=== PATIENT | female | born 1955 | race Caucasian/White ===

== ENCOUNTER → 2020-09-12 10:12 | Outpatient (BNVA) | payer MEDICARE, SELFPAY | PROVIDERS: PCP Physician Assistant; Visit Provider Family Medicine Adult Medicine | DX: M54.16 Radiculopathy, lumbar region (principal); Z98.1 Arthrodesis status | CPT/HCPCS: 99212 ==

== ENCOUNTER 2020-10-17 08:55 | Outpatient (REF) | payer MEDICARE, SELFPAY ==
[2020-10-17 10:17] LABS: MANUAL DIFF FLAG NO
[2020-10-17 10:22] LABS: Basophils Absolute Auto 0.1 X10*3/uL (0.0-0.2); Basophils Percent Auto 0.9 % (0-2); Eosinophils Absolute Auto 0.3 X10*3/uL (0.0-0.4); Eosinophils Percent Auto 3.5 % (0-4); Hematocrit 41.6 % (37-47); Hemoglobin 12.6 g/dl (12.0-16.0); Imm Gran Abs Auto 0.02 X10*3/uL (0.00-0.03); Imm Gran Pct Auto 0.2 % (0.0-0.4); Lymphocytes Absolute Auto 3.6 X10*3/uL (1.2-4.9); Lymphocytes Percent Auto 36.6 % (20-40); Mean Corpuscular HGB Conc 30.3 g/dl (31.0-35.0); Mean Corpuscular Volume 95.6 fL (80-98); Mean Platelet Volume 9.6 fL (9.4-12.3); Monocytes Absolute Auto 0.8 X10*3/uL (0.1-1.2); Monocytes Percent Auto 7.7 % (2-11); Neutrophils Percent Auto 51.1 % (45-73); Platelet Count 362 X10*3/uL (160-400); Red Blood Count 4.35 X10*6/uL (4.20-5.50); Red Cell Distribution Width 13.3 % (11.0-16.0); White Blood Count 9.8 X10*3/uL (4.8-10.8)
[2020-10-17 11:04] LABS: Alanine Aminotransferase 11 U/L (0-31); Albumin Level 4.2 g/dL (3.5-5.0); Alkaline Phosphatase 90 U/L (39-117); Anion Gap 12 (12-20); Aspartate Amino Transferase 11 U/L (5-31); Bilirubin Total 0.4 mg/dL (0.0-1.0); Blood Urea Nitrogen 16 mg/dL (9-16); Calcium 8.6 mg/dL (8.4-10.2); Carbon Dioxide 24 mmol/L (22-29); Chloride 109 mmol/L (96-108); Estimated Glomerular Filt Rate 57; Glucose Fasting 87 mg/dL (60-99); Sodium 141 mmol/L (135-145); Total Protein 6.4 g/dL (6.5-8.0)
== END 2020-10-17 08:56 | disposition home or self-care (01) ==
LOC: HO.10HDL 08:55
PROVIDERS: PCP Physician Assistant; Visit Provider Internal Medicine Medical Oncology
DX: M54.16 Radiculopathy, lumbar region (principal); F41.9 Anxiety disorder, unspecified; D50.9 Iron deficiency anemia, unspecified; Z98.1 Arthrodesis status
CPT/HCPCS: 36415; 80053; 85025; 99212

== ENCOUNTER 2020-11-28 08:32 | Outpatient (REF) | payer MEDICARE, SELFPAY ==
[2020-11-28 13:39] LABS: MANUAL DIFF FLAG NO
[2020-11-28 13:50] LABS: Basophils Absolute Auto 0.1 X10*3/uL (0.0-0.2); Basophils Percent Auto 1.1 % (0-2); Eosinophils Absolute Auto 0.5 X10*3/uL (0.0-0.4); Eosinophils Percent Auto 4.1 % (0-4); Hematocrit 45.5 % (37-47); Hemoglobin 13.7 g/dl (12.0-16.0); Imm Gran Abs Auto 0.03 X10*3/uL (0.00-0.03); Imm Gran Pct Auto 0.3 % (0.0-0.4); Lymphocytes Absolute Auto 3.6 X10*3/uL (1.2-4.9); Lymphocytes Percent Auto 32.3 % (20-40); Mean Corpuscular HGB Conc 30.1 g/dl (31.0-35.0); Mean Corpuscular Hemoglobin 27.6 pg (27.0-33.0); Mean Corpuscular Volume 91.7 fL (80-98); Mean Platelet Volume 9.8 fL (9.4-12.3); Monocytes Absolute Auto 0.8 X10*3/uL (0.1-1.2); Monocytes Percent Auto 7.2 % (2-11); Neutrophils Absolute Auto 6.1 X10*3/uL (2.0-8.3); Platelet Count 432 X10*3/uL (160-400); Red Blood Count 4.96 X10*6/uL (4.20-5.50); Red Cell Distribution Width 13.1 % (11.0-16.0); White Blood Count 11.1 X10*3/uL (4.8-10.8)
[2020-11-28 14:42] LABS: Alanine Aminotransferase 11 U/L (0-31); Albumin Level 4.3 g/dL (3.5-5.0); Alkaline Phosphatase 92 U/L (39-117); Anion Gap 14 (12-20); Aspartate Amino Transferase 11 U/L (5-31); Bilirubin Total 0.3 mg/dL (0.0-1.0); Blood Urea Nitrogen 13 mg/dL (9-16); Calcium 9.2 mg/dL (8.4-10.2); Carbon Dioxide 24 mmol/L (22-29); Chloride 109 mmol/L (96-108); Cholesterol 209 mg/dL; Estimated Glomerular Filt Rate 53; Glucose Fasting 85 mg/dL (60-99); HDL Cholesterol 46 mg/dL; LDL Cholesterol Calculated 128 mg/dl; Potassium 4.1 mmol/l (3.3-5.1); Sodium 143 mmol/L (135-145); Total Protein 6.6 g/dL (6.5-8.0); Triglycerides 175 mg/dL
[2020-11-28 14:49] LABS: TSH reflex Free T4 0.86 mIU/mL (0.32-4.0)
== END 2020-11-28 08:33 | disposition home or self-care (01) ==
LOC: HO.10HDL 08:32
PROVIDERS: Visit Provider Physician Assistant
DX: E78.2 Mixed hyperlipidemia (principal); I10 Essential (primary) hypertension
CPT/HCPCS: 36415; 80053; 80061; 84443; 85025

== ENCOUNTER → 2020-11-29 08:47 | Outpatient (BNVA) | payer MEDICARE, SELFPAY | PROVIDERS: PCP Physician Assistant; Visit Provider Anesthesiology | DX: M41.9 Scoliosis, unspecified (principal); M47.816 Spondylosis without myelopathy or radiculopathy, lumbar region; G89.4 Chronic pain syndrome; Z79.891 Long term (current) use of opiate analgesic | CPT/HCPCS: 99212 ==

== ENCOUNTER → 2020-12-08 08:52 | Outpatient (BNVA) | payer MEDICARE, SELFPAY | PROVIDERS: PCP Physician Assistant; Visit Provider Family Medicine Adult Medicine | DX: Z98.1 Arthrodesis status (principal); M54.16 Radiculopathy, lumbar region ==

== ENCOUNTER 2020-12-12 09:20 | Outpatient (REF) | payer MEDICARE, SELFPAY ==
--- NOTE | 2020-12-12 09:23 | MR_ITS ---
EXAMINATION: MR LUMBAR SPINE WITHOUT CONTRAST CLINICAL INFORMATION: Chronic pain syndrome. COMPARISON: Plain films of the lumbar spine 01/21/2019. TECHNIQUE: MRI of the lumbar spine was obtained using routine sequences without contrast. FINDINGS: VERTEBRAL BODIES AND PARASPINAL STRUCTURES: The study redemonstrates a severe rotatory levoscoliosis. There is a mild retrolisthesis of L3 on L4. There is multilevel narrowing of intervertebral disc height, and there are degenerative endplate contour changes at multiple levels. Mild edematous endplate signal changes are seen at L2-L3 and L3-L4. There are no acute compression fractures. There are areas of increased T1 and T2 signal in multiple vertebrae, consistent with hemangiomata. Overall, marrow signal is homogenous. The visualized retroperitoneal and pelvic structures are unremarkable. CONUS MEDULLARIS AND CAUDA EQUINA: Normal, terminating at the level of T12. There is straightening of the cauda equina nerve roots along the concavity of the scoliosis. The filum terminale appears normal. 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 SPINAL LEVELS: L1-L2: There is mild to moderate bilateral facet arthropathy. There is a posterior disc osteophyte complex extending into the neural foramina bilaterally, more prominently on the right. There is narrowing of the right subarticular recess. There is no central stenosis. L2-L3: There is moderate bilateral facet arthropathy with ligamenta flava hypertrophy. There is a posterior disc protrusion extending into the inferior right neural foramen without definite exiting nerve root impingement. There is narrowing of the right subarticular recess. There is no significant central stenosis. L3-L4: There is moderate to severe bilateral facet arthropathy with ligamenta flava hypertrophy and joint effusions. There is a broad-based posterior disc protrusion, with an extruded component extending into the left subarticular recess with mass effect on the traversing left L4 nerve root and with distortion of the thecal sac on the left. There is mild narrowing of the right subarticular recess. There are inferior foraminal disc protrusions without definite exiting nerve root impingement. There is mild to moderate central stenosis. L4-L5: There is moderate bilateral facet arthropathy. There is a posterior disc protrusion extending into the left neural foramen with impingement on the exiting left L4 nerve root. There is narrowing of the left subarticular recess, and there is likely impingement on the traversing left L5 nerve root. There is no central stenosis. L5-S1: There is moderate to severe bilateral facet arthropathy. There is a posterior disc protrusion extending into the left neural foramen with impingement on the exiting left L5 nerve root. There is no central stenosis. MR/MR lumbar spine wo con IMPRESSION: 1. There is a severe rotatory levoscoliosis. 2. At L3-L4 there is facet arthropathy and there is a posterior disc protrusion with an extruded component extending into the left subarticular recess. There is mass effect on the traversing left L4 nerve root and distortion of the thecal sac. There is mild to moderate central stenosis. 3. At L5-S1 there is facet arthropathy and there is a posterior disc protrusion extending into the left neural foramen with impingement on the exiting left L5 nerve root. 4. At L4-L5 there is facet arthropathy and there is a posterior disc protrusion extending into the left neural foramen with impingement on the exiting left L4 nerve root. There is also narrowing of the left subarticular recess with likely impingement on the traversing left L5 nerve root. There is no central stenosis.
== END 2020-12-12 09:21 | disposition home or self-care (01) ==
LOC: HO.MRI 09:20
PROVIDERS: Visit Provider Anesthesiology
DX: G89.4 Chronic pain syndrome (principal); M41.9 Scoliosis, unspecified; M47.816 Spondylosis without myelopathy or radiculopathy, lumbar region
CPT/HCPCS: 72148

== ENCOUNTER → 2021-01-10 08:24 | Outpatient (BNVA) | payer MEDICARE, SELFPAY | PROVIDERS: PCP Physician Assistant; Visit Provider Anesthesiology | DX: M41.9 Scoliosis, unspecified (principal); M47.816 Spondylosis without myelopathy or radiculopathy, lumbar region; G89.4 Chronic pain syndrome; Z79.891 Long term (current) use of opiate analgesic | CPT/HCPCS: 99212 ==

== ENCOUNTER → 2021-02-01 09:29 | Outpatient (BNVA) | payer MEDICARE, SELFPAY | PROVIDERS: PCP Physician Assistant; Visit Provider Family Medicine Adult Medicine | DX: M54.16 Radiculopathy, lumbar region (principal); F41.9 Anxiety disorder, unspecified; Z98.1 Arthrodesis status | CPT/HCPCS: 99212 ==

== ENCOUNTER → 2021-03-08 09:46 | Outpatient (BNVA) | payer MEDICARE, SELFPAY | PROVIDERS: PCP Physician Assistant; Visit Provider Family Medicine Adult Medicine | DX: M54.16 Radiculopathy, lumbar region (principal); Z98.1 Arthrodesis status; F41.9 Anxiety disorder, unspecified; G43.909 Migraine, unspecified, not intractable, without status migrainosus | CPT/HCPCS: 99212 ==

== ENCOUNTER 2021-04-03 08:24 | Outpatient (REF) | payer MEDICARE, SELFPAY ==
--- NOTE | ~2021-04-03 | CT_ITS ---
EXAMINATION: CT HEAD WITHOUT CONTRAST CLINICAL INFORMATION: Headache/migraine. COMPARISON: Previous brain MRI November 2006. TECHNIQUE: Contiguous axial imaging was performed from the skull base to vertex without intravenous administration of contrast. This CT examination was performed using dose optimization techniques as appropriate, variously including the following: *Automated exposure control *Adjustment of mA and/or kV according to patient size (this includes techniques or standardized protocols for targeted exams where dose is matched to indication/reason for exam; i.e. extremities or head) *Use of iterative reconstruction technique DLP: 747 mGy-cm. FINDINGS: There is no evidence of an extra-axial collection. There is no evidence of intra-axial or extra-axial hemorrhage. The ventricles and extra-axial CSF spaces are slightly prominent suggestive of mild generalized atrophy. Bach-white matter differentiation is normal. There is mild nonspecific periventricular white matter disease. No mass, mass effect or infarct is seen. Review at bone windows is normal. Paranasal sinuses, mastoid air cells and middle ears are clear. There is a large soft tissue mass in the right scalp adjacent to the frontal bone. This measures 1.7 x 2.4 cm. Hounsfield units measure 67 without contrast previous brain MRI November 2006. The underlying frontal bone is normal appearing. There are 2 new adjacent scalp masses overlying the left parietal bone. These measure 0.5 x 1 cm and 0.6 x 1.4 cm. These also appear high attenuation with Hounsfield units measuring 70 and 44 without contrast. There is a 5 mm high attenuation scalp mass adjacent to the left occipital bone. CT/CT head/brain wo con IMPRESSION: Mild generalized atrophy and nonspecific periventricular white matter disease. New solid-appearing soft tissue masses in the scalp, largest overlying the right frontal bone measuring 1.7 x 2.4 cm. These are not compatible with simple cysts.
== END 2021-04-03 08:25 | disposition home or self-care (01) ==
LOC: HO.CT 08:24
PROVIDERS: PCP Physician Assistant; Visit Provider Physician Assistant
DX: G43.909 Migraine, unspecified, not intractable, without status migrainosus (principal)
CPT/HCPCS: 70450

== ENCOUNTER → 2021-04-12 08:09 | Outpatient (BNVA) | payer MEDICARE, SELFPAY | PROVIDERS: PCP Physician Assistant; Visit Provider Family Medicine Adult Medicine | DX: M54.16 Radiculopathy, lumbar region (principal); Z98.1 Arthrodesis status; G43.809 Other migraine, not intractable, without status migrainosus | CPT/HCPCS: 99212 ==

== ENCOUNTER → 2021-04-26 09:15 | Outpatient (BNVA) | payer MEDICARE, SELFPAY | PROVIDERS: PCP Physician Assistant; Referring Provider Physician Assistant; Visit Provider Surgery | DX: D23.4 Other benign neoplasm of skin of scalp and neck (principal) | CPT/HCPCS: 99202 ==

== ENCOUNTER → 2021-05-10 08:47 | Outpatient (BNVA) | payer MEDICARE, SELFPAY | PROVIDERS: PCP Physician Assistant; Visit Provider Family Medicine Adult Medicine | DX: M54.16 Radiculopathy, lumbar region (principal); G43.909 Migraine, unspecified, not intractable, without status migrainosus; Z98.1 Arthrodesis status | CPT/HCPCS: 99212 ==

== ENCOUNTER 2021-05-17 07:39 | Outpatient (REF) | payer MEDICARE, SELFPAY ==
[2021-05-17 07:49] VITALS: BMI 25.1
[2021-05-17 07:50] VITALS: BP 144/78; PULSE 84; RESP 16; TEMP 37.1; O2SAT 97
--- NOTE | 2021-05-17 07:51 | MHC.SHP ---
Pre-Procedural Eval Section A Date of Service: 05/17/21 The patient is an INPATIENT: No Changes since office visit: Yes Patient answered all questions; No Cold of Flu in the past 2 weeks, No New Medical Problems and No Changes in Medication The History & Physical has been completed within 30 days and I have reviewed it.: Yes Section B Chief Complaint: Cyst, dermoid, scalp and neck Allergies: Allergies Allergy/AdvReac Type Severity Reaction Status Date / Time ampicillin [AMPICILLIN] Allergy Unknown UNKNOWN Verified 05/10/21 09:15 atorvastatin [Lipitor] Allergy Unknown unknown Verified 05/10/21 09:15 doxycycline [DOXYCYCLINE] Allergy Unknown SEVERE Verified 05/10/21 09:15 DIARRHEA, diarrhea hydrochlorothiazide [HCTZ] Allergy Unknown UNKNOWN Verified 05/10/21 09:15 methocarbamol [Robaxin] Allergy Unknown unknown Verified 05/10/21 09:15 Ekoexvv-Zem-Gtp Reductase Allergy Unknown UNKNOWN Verified 05/10/21 09:15 Inhibitor [[id number]-CFU-[id number] REDUCTASE INHIBITOR] zolmitriptan [From ZOMIG] Allergy Unknown UNKNOWN Verified 05/10/21 09:15 Cyclobenzaprine Allergy Unknown unknown Uncoded 05/10/21 09:15 Plan Diagnosis/Plan: Unchanged I have reviewed the history and physical and performed a pertinent physical examination on my patient. No changes have occurred unless specified.
--- NOTE | 2021-05-17 08:39 | P.OP_ITS ---
Operative Note Operative Note Date of Service: 05/17/21 Narrative: Preoperative diagnosis:Pilar cyst x3 Postoperative diagnosis: same Procedure: excision of Pilar cyst x3 Surgeon: Jonathan Pereyra MD [facility] Coordinator: none Anesthesia: local Indications for procedure: 65-year-old female presenting with 3 Pilar cyst including 1 large cyst measuring 2 cm on the right frontal scalp and 2 smaller cyst measuring 1.5 cm each over the left ear Operative findings: Pilar cyst x3 as noted above Specimen: Pilar cyst x3 Estimated blood loss: 5 mL Complications: none Procedure details: patient was brought to the minor surgery suite and placed in a supine position. The site of surgery was confirmed by the patient including the right frontal scalp in the left parietal scalp x2. After assuring informed consent, the right scalp was prepped with Betadine and draped in a sterile fashion. Local anesthesia consisting of lidocaine 1% with epinephrine was infiltrated around the cyst. A transverse incision was then created with a scalpel carried out through subcutaneous tissue. Sharp dissection was then used to dissect the cyst from the surrounding subcutaneous tissue. The cyst was sent to pathology for further examination. Skin was closed using simple interrupted 3-0 Prolene sutures. Attention was then directed to the 2 adjacent cysts lower the left ear. Skin was prepped with Betadine and draped in a sterile fashion. Local anesthesia was infiltrated around both cyst. Elliptical incision was then made over the 2 cysts in carried out through subcutaneous tissue. Both cyst were sharply dissected through the same incision using Metzenbaum scissors. These were sent to pathology for further examination. Light pressure was held to maintain hemostasis. Skin was then closed using interrupted 3-0 Prolene sutures. Skin was cleansed with saline solution and bacitracin ointment applied. The patient tolerated the procedure well was discharged to home in stable condition.
== END 2021-05-17 07:40 | disposition home or self-care (01) ==
LOC: HO.MS 07:39
PROVIDERS: PCP Physician Assistant; Visit Provider Surgery
PROC: (CPT 11422; principal; 2021-05-17 08:00)
DX: L72.11 Pilar cyst (principal); Z88.0 Allergy status to penicillin; Z88.1 Allergy status to other antibiotic agents; Z88.8 Allergy status to other drugs, medicaments and biological substances; G89.4 Chronic pain syndrome; M54.16 Radiculopathy, lumbar region; M79.7 Fibromyalgia; Z86.16 Personal history of COVID-19; Z79.891 Long term (current) use of opiate analgesic; Z79.899 Other long term (current) drug therapy
CPT/HCPCS: 11422; 11423; 88304

== ENCOUNTER → 2021-05-25 11:36 | Outpatient (BNVA) | payer MEDICARE, SELFPAY | PROVIDERS: PCP Physician Assistant; Visit Provider Surgery | DX: Z48.817 Encounter for surgical aftercare following surgery on the skin and subcutaneous tissue (principal); Z87.2 Personal history of diseases of the skin and subcutaneous tissue | CPT/HCPCS: 99212 ==

== ENCOUNTER 2021-06-07 10:22 | Outpatient (REF) | payer MEDICARE, SELFPAY ==
[2021-06-07 12:20] LABS: Hematocrit 41.6 % (37-47); Mean Corpuscular HGB Conc 31.3 g/dl (31.0-35.0); Mean Corpuscular Hemoglobin 29.4 pg (27.0-33.0); Mean Corpuscular Volume 94.1 fL (80-98); Mean Platelet Volume 9.3 fL (9.4-12.3); Platelet Count 345 X10*3/uL (160-400); Red Blood Count 4.42 X10*6/uL (4.20-5.50); Red Cell Distribution Width 13.9 % (11.0-16.0); White Blood Count 11.3 X10*3/uL (4.8-10.8)
[2021-06-07 12:35] LABS: Alanine Aminotransferase 12 U/L (0-31); Albumin Level 4.1 g/dL (3.5-5.0); Alkaline Phosphatase 88 U/L (39-117); Anion Gap 13 (12-20); Aspartate Amino Transferase 13 U/L (5-31); Bilirubin Total 0.3 mg/dL (0.0-1.0); Blood Urea Nitrogen 16 mg/dL (9-16); Calcium 9.2 mg/dL (8.4-10.2); Carbon Dioxide 21 mmol/L (22-29); Chloride 111 mmol/L (96-108); Cholesterol 193 mg/dL; Estimated Glomerular Filt Rate 49; Glucose Fasting 84 mg/dL (60-99); HDL Cholesterol 48 mg/dL; Iron 67 mcg/dL (30-160); LDL Cholesterol Calculated 114 mg/dl; Percent Iron Saturation 21 % (15-50); Sodium 141 mmol/L (135-145); Total Iron Binding Capacity 317 mcg/dL (228-428); Total Protein 6.5 g/dL (6.5-8.0); Triglycerides 155 mg/dL; Unsaturated Iron Binding 250 ug/dL
[2021-06-07 12:46] LABS: TSH reflex Free T4 0.55 uIU/mL (0.32-4.0)
[2021-06-07 15:37] LABS: Creatinine Urine 115.76 mg/dL
== END 2021-06-07 10:23 | disposition home or self-care (01) ==
LOC: HO.LAB 10:22
PROVIDERS: Absent Provider Physician Assistant; PCP Physician Assistant; Visit Provider Family Medicine Adult Medicine
DX: M54.16 Radiculopathy, lumbar region (principal); G43.909 Migraine, unspecified, not intractable, without status migrainosus; Z98.1 Arthrodesis status; E78.2 Mixed hyperlipidemia; I10 Essential (primary) hypertension; D50.9 Iron deficiency anemia, unspecified; K27.9 Peptic ulcer, site unspecified, unspecified as acute or chronic, without hemorrhage or perforation
CPT/HCPCS: 36415; 80053; 80061; 82043; 83540; 84443; 85027; 99212

== ENCOUNTER → 2021-07-10 09:58 | Outpatient (BNVA) | payer MEDICARE, SELFPAY | PROVIDERS: PCP Physician Assistant; Visit Provider Family Medicine Adult Medicine | DX: M47.816 Spondylosis without myelopathy or radiculopathy, lumbar region (principal); Z98.1 Arthrodesis status | CPT/HCPCS: 99212 ==

== ENCOUNTER → 2021-08-09 09:39 | Outpatient (BNVA) | payer MEDICARE, SELFPAY | PROVIDERS: PCP Physician Assistant; Visit Provider Family Medicine Adult Medicine | DX: Z51.81 Encounter for therapeutic drug level monitoring (principal); M47.816 Spondylosis without myelopathy or radiculopathy, lumbar region; Z98.1 Arthrodesis status | CPT/HCPCS: 99212 ==

== ENCOUNTER 2021-08-13 08:35 | Outpatient (REF) | payer MEDICARE, SELFPAY ==
--- NOTE | ~2021-08-13 | MM_ITS ---
EXAMINATION: MM SCREENING DIGITAL BREAST TOMOSYNTHESIS, BILATERAL CLINICAL INFORMATION: Screening. Asymptomatic. The lifetime risk of breast cancer based on the Tyrer-Cuzick Model is 9%. COMPARISON: Mammography: 10/28/2019, 10/01/2017, 09/28/2015 TECHNIQUE: Digital breast tomosynthesis is performed in both the craniocaudal and mediolateral oblique views along with computer-aided detection (CAD). Synthesized 2D images are generated from the tomosynthesis. FINDINGS: There are scattered areas of fibroglandular density (ACR BI-RADS breast composition Category b). There are no significant masses, abnormal calcifications, or other abnormalities. Parenchymal pattern is similar to prior studies. Low left axillary tail nodes are stable. Skin contours are smooth. No significant changes. MM/MM tomosynthesis screening BI IMPRESSION: There are no significant changes from prior study. ASSESSMENT: BI-RADS 2: Benign RECOMMENDATION: Routine annual mammography screening. This patient's information was entered into a reminder system with a target due date for their next mammogram.
== END 2021-08-13 08:36 | disposition home or self-care (01) ==
LOC: HO.MAMMO 08:35
PROVIDERS: PCP Physician Assistant; Visit Provider Internal Medicine Medical Oncology
DX: Z12.31 Encounter for screening mammogram for malignant neoplasm of breast (principal)
CPT/HCPCS: 77063; 77067

== ENCOUNTER 2021-08-28 09:20 | Outpatient (REF) | payer MEDICARE, SELFPAY ==
--- NOTE | ~2021-08-28 | MM_ITS ---
EXAMINATION: BONE DENSITOMETRY CLINICAL INDICATION: Menopause. COMPARISON: None (current study represents initial baseline exam). TECHNIQUE: Using a [employer] DXA System (software version: 13.1) manufactured by [employer], dual-energy x-ray absorptiometry was performed of the lumbar spine and left hip. The images are of good technical quality. Summary results are attached. FINDINGS: AP SPINE L1-L4: BMD 1.071 g/cm2, Z-score 0.4, T-score -0.9, normal. LEFT FEMUR, NECK: BMD 0.691 g/cm2, Z-score -1.2, T-score -2.5, osteoporosis. LEFT FEMUR, TOTAL: BMD 0.689 g/cm2, Z-score -1.5, T-score -2.5, osteoporosis. IDENTIFIED RISK FACTORS: Menopause, bilateral oophorectomy, family history (parent hip fracture), height loss, history of fracture (adult), hysterectomy, osteoporosis, recurrent falls. HISTORY OF FRACTURE: Ribs, Ankle/leg. MEDICATIONS: Vitamin D. MM/XR DEXA axial skeleton IMPRESSION: 1. DIAGNOSIS: Osteoporosis based on the lowest T-score value of -2.5 in the femur neck and total femur applying World Health Organization criteria. 2. 10-YEAR FRACTURE RISK PREDICTION, FRAX: According to the guidelines, FRAX calculation should only be performed on patients in the osteopenia bone density category. Therefore, FRAX was not performed on this patient. 3. Treatment Recommendations: NOF guidelines recommend consideration for treatment in postmenopausal women and men age 50 and older presenting with the following: -A hip or vertebral (clinical or morphometric) fracture. -T-score less than or equal to -2.5 at the femoral neck or spine after appropriate evaluation to exclude secondary causes. -Low bone mass at the hip or spine and a 10-year fracture probability by FRAX of greater than or equal to 3% for hip fracture or greater than or equal to 20% for major osteoporotic fracture based on the [place] adapted WHO algorithm. 4. Other Recommendations: All treatment decisions require clinical judgment and consideration of individual patient factors, including patient preferences, comorbidities, previous drug use, risk factors not captured in the FRAX model (e.g. frailty, falls, vitamin D deficiency, increased bone turnover, interval significant decline in bone density) and possible under or overestimation of fracture risk by FRAX. Additional medical evaluation for secondary cause of low bone mineral density may be appropriate. FUTURE SCAN RECOMMENDATION: People with diagnosed cases of osteoporosis or at high risk for fracture should have regular bone mineral density tests. For patients eligible for Medicare, routine testing is allowed once every 2 years. The testing frequency can be increased to one year for patients who have rapidly progressing disease, those who are receiving or discontinuing medical therapy to restore bone mass, or have additional risk factors.
== END 2021-08-28 09:21 | disposition home or self-care (01) ==
LOC: HO.MAMMO 09:20
PROVIDERS: Visit Provider Physician Assistant
DX: Z13.820 Encounter for screening for osteoporosis (principal); Z78.0 Asymptomatic menopausal state
CPT/HCPCS: 77080

== ENCOUNTER → 2021-09-06 09:47 | Outpatient (BNVA) | payer MEDICARE, SELFPAY | PROVIDERS: PCP Physician Assistant; Visit Provider Family Medicine Adult Medicine | DX: M47.816 Spondylosis without myelopathy or radiculopathy, lumbar region (principal); M54.16 Radiculopathy, lumbar region; M79.7 Fibromyalgia; G89.4 Chronic pain syndrome; G43.909 Migraine, unspecified, not intractable, without status migrainosus; Z98.1 Arthrodesis status; Z88.6 Allergy status to analgesic agent; Z88.1 Allergy status to other antibiotic agents; Z88.0 Allergy status to penicillin; Z88.8 Allergy status to other drugs, medicaments and biological substances; Z79.891 Long term (current) use of opiate analgesic | CPT/HCPCS: 99212 ==

== ENCOUNTER → 2021-10-04 08:58 | Outpatient (BNVA) | payer MEDICARE, SELFPAY | PROVIDERS: Visit Provider Family Medicine Adult Medicine | DX: Z51.81 Encounter for therapeutic drug level monitoring (principal); M47.816 Spondylosis without myelopathy or radiculopathy, lumbar region; Z98.1 Arthrodesis status | CPT/HCPCS: 99212 ==

== ENCOUNTER 2021-10-08 11:39 | Outpatient (REF) | payer MEDICARE, SELFPAY ==
[2021-10-08 14:08] LABS: Hemoglobin 13.4 g/dl (12.0-16.0); Mean Corpuscular HGB Conc 30.5 g/dl (31.0-35.0); Mean Corpuscular Hemoglobin 28.3 pg (27.0-33.0); Mean Corpuscular Volume 92.8 fL (80.0-98.0); Mean Platelet Volume 9.9 fL (9.4-12.3); Platelet Count 341 X10*3/uL (160-400); Red Blood Count 4.74 X10*6/uL (4.20-5.50); Red Cell Distribution Width 13.9 % (11.0-16.0); White Blood Count 12.5 X10*3/uL (4.8-10.8)
[2021-10-08 14:30] LABS: Alanine Aminotransferase 19 U/L (0-31); Albumin Level 4.1 g/dL (3.5-5.0); Alkaline Phosphatase 92 U/L (39-117); Anion Gap 12 (12-20); Aspartate Amino Transferase 15 U/L (5-31); Bilirubin Total 0.2 mg/dL (0.0-1.0); Blood Urea Nitrogen 15 mg/dL (9-16); Calcium 8.9 mg/dL (8.4-10.2); Carbon Dioxide 24 mmol/L (22-29); Chloride 111 mmol/L (96-108); Cholesterol 196 mg/dL; Estimated Glomerular Filt Rate 56; Glucose Fasting 87 mg/dL (60-99); HDL Cholesterol 43 mg/dL; LDL Cholesterol Calculated 123 mg/dl; Potassium 3.9 mmol/L (3.3-5.1); Sodium 143 mmol/L (135-145); Total Protein 6.4 g/dL (6.5-8.0); Triglycerides 151 mg/dL
[2021-10-08 14:36] LABS: TSH reflex Free T4 0.48 uIU/mL (0.32-4.0)
== END 2021-10-08 11:40 | disposition home or self-care (01) ==
LOC: HO.10HDL 11:39
PROVIDERS: Visit Provider Physician Assistant
DX: E78.2 Mixed hyperlipidemia (principal); I10 Essential (primary) hypertension
CPT/HCPCS: 36415; 80053; 80061; 84443; 85027

== ENCOUNTER → 2021-11-06 09:45 | Outpatient (BNVA) | payer MEDICARE, SELFPAY | PROVIDERS: PCP Physician Assistant; Visit Provider Family Medicine Adult Medicine | DX: Z51.81 Encounter for therapeutic drug level monitoring (principal); F11.20 Opioid dependence, uncomplicated | CPT/HCPCS: 99211 ==

== ENCOUNTER 2022-02-06 10:23 | Outpatient (REF) | payer MEDICARE, SELFPAY ==
--- NOTE | ~2022-02-06 | XR_ITS ---
EXAMINATION: XR CHEST CLINICAL INFORMATION: Shortness of breath COMPARISON: Previous chest x-ray most recent January 2019 TECHNIQUE: 2 views of the chest were obtained. FINDINGS: The cardiac silhouette is slightly enlarged. There is an air-fluid level behind the heart likely representing an esophageal hernia. Hilar and mediastinal contours are otherwise unremarkable. There is elevation of the right hemidiaphragm similar to previous exams. The lungs are clear. There is no pleural effusion or pneumothorax. Bony structures are unremarkable. XR/XR chest 2V IMPRESSION: Slightly enlarged cardiac silhouette. Esophageal hernia. Stable slight elevation of the right hemidiaphragm.
[2022-02-06 11:08] LABS: Mean Corpuscular HGB Conc 30.2 g/dl (31.0-35.0); Mean Platelet Volume 9.3 fL (9.4-12.3); Platelet Count 394 X10*3/uL (160-400); Red Blood Count 4.48 X10*6/uL (4.20-5.50); Red Cell Distribution Width 13.2 % (11.0-16.0); White Blood Count 12.9 X10*3/uL (4.8-10.8)
[2022-02-06 12:00] LABS: Alanine Aminotransferase 16 U/L (0-31); Alkaline Phosphatase 87 U/L (39-117); Anion Gap 12 (12-20); Aspartate Amino Transferase 13 U/L (5-31); Bilirubin Total 0.4 mg/dL (0.0-1.0); Blood Urea Nitrogen 18 mg/dL (9-16); Calcium 9.5 mg/dL (8.4-10.2); Carbon Dioxide 24 mmol/L (22-29); Chloride 112 mmol/L (96-108); Cholesterol 176 mg/dL; Estimated Glomerular Filt Rate 47; Glucose Fasting 82 mg/dL (60-99); HDL Cholesterol 49 mg/dL; Iron 34 mcg/dL (30-160); LDL Cholesterol Calculated 106 mg/dl; Percent Iron Saturation 9 % (15-50); Potassium 4.2 mmol/L (3.3-5.1); Sodium 144 mmol/L (135-145); Total Iron Binding Capacity 360 mcg/dL (228-428); Total Protein 6.3 g/dL (6.5-8.0); Triglycerides 109 mg/dL; Unsaturated Iron Binding 326 ug/dL
[2022-02-06 12:08] LABS: B Type Natriuretic Peptide 30 pg/mL (<100)
[2022-02-06 12:23] LABS: TSH reflex Free T4 0.92 uIU/mL (0.32-4.0)
== END 2022-02-06 10:24 | disposition home or self-care (01) ==
LOC: HO.LAB 10:23
PROVIDERS: PCP Physician Assistant; Visit Provider Physician Assistant
DX: R06.02 Shortness of breath (principal); D50.9 Iron deficiency anemia, unspecified; E78.2 Mixed hyperlipidemia
CPT/HCPCS: 36415; 71046; 80053; 80061; 83540; 83880; 84443; 85027

== ENCOUNTER 2022-04-25 08:44 | Outpatient (REF) | payer MEDICARE, SELFPAY ==
--- NOTE | 2022-04-25 12:55 | PFT_ITS ---
INDICATION: Dyspnea. SPIROMETRY: FEV1 to FVC of 80% with an FEV1 of 2.16 L, which is 91% predicted and an FVC of 2.57 L, which is 82% predicted. No significant response to bronchodilators noted. Maximum voluntary ventilation 100% predicted. LUNG VOLUMES: Total lung capacity 72% predicted with an expiratory reserve volume of 40% predicted. DIFFUSION CAPACITY: DLCO 52% predicted. COMPARISONS: None. INTERPRETATION: There is no obstructive ventilatory defect. No significant response to bronchodilators noted. Normal maximum voluntary ventilation. The patient does have a restrictive ventilatory defect consistent with mild restrictive lung disease. In addition to that, the patient does have a moderate diffusion impairment. Need to consider underlying interstitial lung conditions. Additional imaging studies warranted. Clinical correlation warranted. MD MARE Turner/MODL / [id number]
== END 2022-04-25 08:45 | disposition home or self-care (01) ==
LOC: HO.RESP 08:44
PROVIDERS: Visit Provider Physician Assistant
DX: R06.02 Shortness of breath (principal)
CPT/HCPCS: 94060; 94727; 94729

== ENCOUNTER 2022-05-07 09:13 | Outpatient (REF) | payer MEDICARE, SELFPAY ==
--- NOTE | ~2022-05-07 | CT_ITS ---
EXAMINATION: CT CHEST WITHOUT CONTRAST CLINICAL INFORMATION: Shortness of breath. COMPARISON: Chest x-ray 02/06/2022. TECHNIQUE: Multidetector volumetric CT imaging of the chest was done. Axial MIP volume rendering provided. Sagittal and coronal reformatted images were obtained. This CT examination was performed using dose optimization techniques as appropriate, variously including the following: *Automated exposure control. *Adjustment of mA and/or kV according to patient size (this includes techniques or standardized protocols for targeted exams where dose is matched to indication/reason for exam; i.e. extremities or head). *Use of iterative reconstruction technique. DLP: 128 mGy-cm FINDINGS: OIL PAINTER: Hypoexpanded lungs with elevated bilateral hemidiaphragms. LUNGS: The lungs are well expanded and clear of acute pneumonic process. There are no pulmonary nodules, mass or consolidation. There is no interstitial thickening, bronchiectasis or ground-glass density. Minimal atelectatic changes in left posterior lung base secondary to elevated left hemidiaphragm are noted. MEDIASTINUM: The thyroid lobes are symmetrical and normal. The central trachea and the bronchi are widely patent. Heart size and the great vessels are normal caliber. There is no pericardial effusion seen. Trace coronary artery calcifications are present. PLEURA: There is no pleural effusion. No pleural mass or thickening. AXILLA: No lymphadenopathy. UPPER ABDOMEN: Visualized liver, spleen, pancreas appear unremarkable. There is a left adrenal 2.2 x 2.3 cm adenoma measuring 7 Hounsfield units. Best visualized on axial image 55/3. OSSEOUS STRUCTURES: There is dextroscoliosis without any aggressive lytic or sclerotic lesion. There is T7 vertebral body hemangioma suspected. CT/CT chest wo con IMPRESSION: 1. No acute cardiopulmonary process seen. 2. Hypoexpanded lungs with elevated left posterior hemidiaphragm with minimal left posterior basilar atelectasis. 3. Left adrenal benign adenoma. 4. Moderate dextroscoliosis of dorsal lumbar spine. Fleischner guidelines were followed.
== END 2022-05-07 09:14 | disposition home or self-care (01) ==
LOC: HO.CT 09:13
PROVIDERS: Visit Provider Physician Assistant
DX: R06.02 Shortness of breath (principal); J98.4 Other disorders of lung; R94.2 Abnormal results of pulmonary function studies; U09.9 Post COVID-19 condition, unspecified
CPT/HCPCS: 71250

== ENCOUNTER 2022-06-18 10:38 | Outpatient (REF) | payer MEDICARE, SELFPAY ==
[2022-06-18 11:09] LABS: Hemoglobin 11.8 g/dl (12.0-16.0); Mean Corpuscular HGB Conc 30.3 g/dl (31.0-35.0); Mean Corpuscular Hemoglobin 27.5 pg (27.0-33.0); Mean Corpuscular Volume 90.9 fL (80.0-98.0); Mean Platelet Volume 9.2 fL (9.4-12.3); Platelet Count 376 X10*3/uL (160-400); Red Blood Count 4.29 X10*6/uL (4.20-5.50); Red Cell Distribution Width 14.2 % (11.0-16.0); White Blood Count 11.9 X10*3/uL (4.8-10.8)
[2022-06-18 11:52] LABS: Alanine Aminotransferase 11 U/L (0-31); Alkaline Phosphatase 84 U/L (39-117); Anion Gap 16 (12-20); Aspartate Amino Transferase 11 U/L (5-31); Bilirubin Total 0.2 mg/dL (0.0-1.0); Blood Urea Nitrogen 12 mg/dL (9-16); Carbon Dioxide 22 mmol/L (22-29); Chloride 110 mmol/L (96-108); Estimated Glomerular Filt Rate 53; Glucose Fasting 85 mg/dL (60-99); Potassium 3.6 mmol/L (3.3-5.1); Sodium 144 mmol/L (135-145); Total Protein 6.4 g/dL (6.5-8.0)
[2022-06-18 12:06] LABS: TSH reflex Free T4 1.28 uIU/mL (0.32-4.0)
== END 2022-06-18 10:39 | disposition home or self-care (01) ==
LOC: HO.LAB 10:38
PROVIDERS: PCP Physician Assistant; Visit Provider Physician Assistant
DX: J98.6 Disorders of diaphragm (principal); J98.4 Other disorders of lung; E78.2 Mixed hyperlipidemia; Z77.22 Contact with and (suspected) exposure to environmental tobacco smoke (acute) (chronic)
CPT/HCPCS: 36415; 80053; 84443; 85027; 99202

== ENCOUNTER 2022-07-23 09:42 | Outpatient (REF) | payer MEDICARE, SELFPAY ==
[2022-07-23 10:20] LABS: MANUAL DIFF FLAG NO
[2022-07-23 10:23] LABS: Basophils Absolute Auto 0.1 X10*3/uL (0.0-0.2); Basophils Percent Auto 1.2 % (0-2); Eosinophils Absolute Auto 1.1 X10*3/uL (0.0-0.4); Eosinophils Percent Auto 9.9 % (0-4); Hematocrit 34.6 % (37.0-47.0); Hemoglobin 10.3 g/dl (12.0-16.0); Imm Gran Abs Auto 0.02 X10*3/uL (0.00-0.03); Imm Gran Pct Auto 0.2 % (0.0-0.4); Lymphocytes Absolute Auto 3.5 X10*3/uL (1.2-4.9); Lymphocytes Percent Auto 33.4 % (20-40); Mean Corpuscular HGB Conc 29.8 g/dl (31.0-35.0); Mean Corpuscular Volume 87.4 fL (80.0-98.0); Mean Platelet Volume 9.5 fL (9.4-12.3); Monocytes Absolute Auto 0.9 X10*3/uL (0.1-1.2); Monocytes Percent Auto 8.4 % (2-11); Neutrophils Percent Auto 46.9 % (45-73); Platelet Count 417 X10*3/uL (160-400); Red Blood Count 3.96 X10*6/uL (4.20-5.50); Red Cell Distribution Width 13.3 % (11.0-16.0); White Blood Count 10.6 X10*3/uL (4.8-10.8)
[2022-07-23 10:56] LABS: Alanine Aminotransferase 10 U/L (0-31); Albumin Level 3.9 g/dL (3.5-5.0); Alkaline Phosphatase 83 U/L (39-117); Anion Gap 14 (12-20); Aspartate Amino Transferase 10 U/L (5-31); Bilirubin Total 0.2 mg/dL (0.0-1.0); Blood Urea Nitrogen 9 mg/dL (9-16); Calcium 8.9 mg/dL (8.4-10.2); Carbon Dioxide 22 mmol/L (22-29); Chloride 112 mmol/L (96-108); Cholesterol 184 mg/dL; Estimated Glomerular Filt Rate 54; Glucose Fasting 86 mg/dL (60-99); HDL Cholesterol 48 mg/dL; LDL Cholesterol Calculated 106 mg/dl; Potassium 3.3 mmol/L (3.3-5.1); Sodium 145 mmol/L (135-145); Total Protein 6.1 g/dL (6.5-8.0); Triglycerides 151 mg/dL
[2022-07-23 11:17] LABS: Ferritin 5 ng/mL (10-250)
== END 2022-07-23 09:43 | disposition home or self-care (01) ==
LOC: HO.10HDL 09:42
PROVIDERS: Absent Provider Physician Assistant; Visit Provider Internal Medicine Medical Oncology
DX: D50.9 Iron deficiency anemia, unspecified (principal); I10 Essential (primary) hypertension; E78.5 Hyperlipidemia, unspecified
CPT/HCPCS: 36415; 80053; 80061; 82728; 85025

== ENCOUNTER → 2022-08-12 10:02 | Outpatient (BNVA) | payer MEDICARE, SELFPAY | PROVIDERS: PCP Physician Assistant; Visit Provider Internal Medicine | DX: J98.6 Disorders of diaphragm (principal); J98.4 Other disorders of lung; R06.09 Other forms of dyspnea; B94.8 Sequelae of other specified infectious and parasitic diseases; M41.9 Scoliosis, unspecified | CPT/HCPCS: 99212 ==

== ENCOUNTER 2022-08-15 08:07 | Outpatient (REF) | payer MEDICARE, SELFPAY ==
--- NOTE | ~2022-08-15 | MM_ITS ---
EXAMINATION: MM SCREENING DIGITAL BREAST TOMOSYNTHESIS, BILATERAL CLINICAL INFORMATION: Screening. Asymptomatic. The lifetime risk of breast cancer based on the Tyrer-Cuzick Model is 8%. COMPARISON: Mammography: 08/13/2021, 10/28/2019, 10/01/2017 TECHNIQUE: Digital breast tomosynthesis is performed in both the craniocaudal and mediolateral oblique views along with computer-aided detection (CAD). Synthesized 2D images are generated from the tomosynthesis. Additional right exaggerated CC view is provided. FINDINGS: There are scattered areas of fibroglandular density (ACR BI-RADS breast composition Category b). There are no significant masses, abnormal calcifications, or other abnormalities. Parenchymal pattern is similar to prior studies. There is no developing density or architectural abnormality. The axilla and skin contours are unremarkable. No significant changes. MM/MM tomosynthesis screening BI IMPRESSION: No mammographic evidence of malignancy. ASSESSMENT: BI-RADS 1: Negative RECOMMENDATION: Routine annual mammography screening. This patient's information was entered into a reminder system with a target due date for their next mammogram.
== END 2022-08-15 08:08 | disposition home or self-care (01) ==
LOC: HO.MAMMO 08:07
PROVIDERS: PCP Physician Assistant; Visit Provider Physician Assistant
DX: Z12.31 Encounter for screening mammogram for malignant neoplasm of breast (principal)
CPT/HCPCS: 77063; 77067

== ENCOUNTER → 2022-10-22 10:29 | Outpatient (BNVA) | payer MEDICARE, SELFPAY | PROVIDERS: PCP Physician Assistant; Visit Provider Internal Medicine | DX: J98.4 Other disorders of lung (principal); R06.09 Other forms of dyspnea; J98.6 Disorders of diaphragm | CPT/HCPCS: 99212 ==